=== PATIENT | female | born 1960 | race Caucasian/White ===

== ENCOUNTER 2021-04-10 12:55 | Outpatient (CLI) | payer BC, OTHER ==
[2021-04-10] MEDS ORDERED: CALCIUM PO (15:21)
[2021-04-10] MEDS ORDERED: LEVA15HF4 PO (15:21)
[2021-04-10] MEDS ORDERED: VITA1CAP PO (15:21)
[2021-04-10] MEDS ORDERED: RIZA10TA20 PO (15:21)
[2021-04-10] MEDS ORDERED: CHOL10003 PO (15:21)
[2021-04-10] MEDS ORDERED: PROG100C16 PO (15:21)
[2021-04-10] MEDS ORDERED: [UNRECOGNIZED DRUG - OTHER] TP (15:21)
[2021-04-10] MEDS ORDERED: FLUT100B INH (15:21)
[2021-04-10] MEDS ORDERED: Budesonide NAS (15:21)
[2021-04-10] MEDS ORDERED: VALA500T4 PO (15:21)
[2021-04-10] MEDS ORDERED: MAGNESIUM PO (15:21)
== END 2021-04-10 23:59 | disposition home or self-care (01) ==
LOC: STAR 12:55
PROVIDERS: ATTEND Internal Medicine Geriatric Medicine
DX: Z01.818 Encounter for other preprocedural examination (principal); K86.2 Cyst of pancreas; I51.7 Cardiomegaly
CPT/HCPCS: 93005

== ENCOUNTER 2021-04-17 11:08 | Day surgery (SDC) | payer BC, OTHER ==
[~2021-04-17] VITALS: Ht 167.6 cm; Wt 77.0 kg
[~2021-04-17 11:08] MED LIST: Budesonide NAS; CALCIUM PO; CHOL10003 PO; FLUT100B INH; LEVA15HF4 PO; MAGNESIUM PO; PROG100C16 PO; RIZA10TA20 PO; VALA500T4 PO; VITA1CAP PO; [UNRECOGNIZED DRUG - OTHER] TP
[2021-04-17 11:46] VITALS: BP 131/92
[2021-04-17] MEDS ORDERED: CHLORHEXIDINE 15 ML UDC PO ONE (12:00)
[2021-04-17] MEDS ORDERED: LACTATED RINGERS 1,000 ML IV SCH (12:00)
[2021-04-17] MEDS ORDERED: PROPOFOL 50 ML ONE (12:34)
[2021-04-17] MEDS ORDERED: DIAZEPAM 5 MG/ML, 2ML IVPush PRN (14:00)
[2021-04-17] MEDS ORDERED: FENTANYL PF 100 MCG/2ML IV PRN (14:00)
[2021-04-17] MEDS ORDERED: ACETAMINOPHEN 325 MG TABLET PO PRN (14:00)
[2021-04-17] MEDS ORDERED: ONDANSETRON 2MG/ML, 2ML IVPush PRN (14:00)
== END 2021-04-17 15:30 | disposition home or self-care (01) ==
LOC: OUT 11:08
PROVIDERS: ATTEND Internal Medicine Geriatric Medicine
DX: K86.2 Cyst of pancreas (principal); K22.2 Esophageal obstruction; K57.90 Diverticulosis of intestine, part unspecified, without perforation or abscess without bleeding; K55.9 Vascular disorder of intestine, unspecified; J45.909 Unspecified asthma, uncomplicated; E66.3 Overweight; Z79.899 Other long term (current) drug therapy; Z88.5 Allergy status to narcotic agent; Z88.8 Allergy status to other drugs, medicaments and biological substances; Z90.49 Acquired absence of other specified parts of digestive tract; Z98.890 Other specified postprocedural states
CPT/HCPCS: 43259; J2704; J7120